=== PATIENT | female | born 1980 | race Caucasian/White ===

== ENCOUNTER 2022-11-26 20:02 | Emergency (ER) | payer OTHER, SELFPAY ==
--- NOTE | 2022-11-26 20:32 | ECG_ITS ---
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 Measurements Intervals [place] Rate: 58 P: 67 CT: 163 QRS: 34 QRSD: 106 T: 66 QT: 448 QTc: 442 Interpretive Statements SINUS BRADYCARDIA INCOMPLETE RIGHT BUNDLE BRANCH BLOCK [90+ ms QRS DURATION, TERMINAL R IN V1/V2, 40+ ms S IN I/aVL/V4/V5/V6] No previous ECG available for comparison Electronically Signed On 11-27-2022 9:27:24 GEAR AND SPLINE GRINDER by Ant Anna M.D. [id number] f
[2022-11-26 20:33] VITALS: BP 168/92; PULSE 68; RESP 18; TEMP 36.4; O2SAT 100; BMI 23.8
--- NOTE | 2022-11-26 20:45 | XRR_ITS ---
PROCEDURE INFORMATION: Exam: XR Chest Exam date and time: 11/26/2022 9:01 PM Age: 41 years old Clinical indication: Shortness of breath; Sternal or substernal pain; Patient HX: C/O substernal cp with SOB. ; Additional info: Cp, SOB TECHNIQUE: Imaging protocol: Radiologic exam of the chest. Views: 1 view. COMPARISON: No relevant prior studies available. FINDINGS: Lungs: Unremarkable. No consolidation. Pleural spaces: Unremarkable. No pleural effusion. No pneumothorax. Heart/Mediastinum: Unremarkable. No cardiomegaly. Bones/joints: Unremarkable. XR/XR chest 1V portable [id number] IMPRESSION: No acute findings.
[2022-11-26 21:01] VITALS: BP 127/67; PULSE 64; RESP 18; O2SAT 100
--- NOTE | 2022-11-26 21:03 | ED_ITS ---
Documented by User: Ward Xavier DO 11/26/22 23:11 HPI - General Adult General: Chief complaint: General Medical Stated complaint: Problems Breath\Chest Pain\Vomiting Time Seen by Provider: 11/26/22 20:59 History of Present Illness: 41-year-old female presents with substernal chest pain that worsens with breathing. Some mild shortness of breath. Nausea, vomiting. Patient was seen 4 days ago with similar symptoms in [facility] and told she had a viral syndrome. She presents today because she continues to feel bad. She reports a history of pneumonia with a collapsed lung and says it felt similar to that at this time. Associated symptoms: Reports chest pain, dyspnea, malaise, nausea and vomiting; Deny headache(s), rash or palpitations Review of Systems Const: Reports: chills, body aches and malaise; Denies: fever(s) Card: Reports: chest pain; Denies: palpitations or lightheadedness Resp: Reports: dyspnea and pain on inspiration; Denies: wheezing GI: Reports: nausea and vomiting; Denies: abdominal pain : Denies: difficulty voiding Musc: Denies: neck pain, back pain or extremity pain Skin/Breast: Denies: rash Neuro: Denies: headache(s) or numbness in extremities Physical Exam Const: COMMON NORMALS: patient oriented x3 and well nourished GENERAL APPEARANCE: not comfortable Resp: COMMON NORMALS: normal respiratory effort, No retractions, No use of accessory muscles and clear to auscultation bilaterally AUSCULTATION: clear to auscultation bilaterally Cardio: COMMON NORMALS: regular rate and regular rhythm RATE: regular rate RHYTHM: regular rhythm GI: COMMON NORMALS: Soft to palpation and non-tender PALPATION: Yes Soft to palpation Extremity: COMMON NORMALS: full ROM and capillary refill normal Neuro: COMMON NORMALS: patient oriented x3, moves all extremities and no focal motor deficits Psych: COMMON NORMALS: mental status grossly normal and cooperative Skin: COMMON NORMALS: no rashes or lesions noted and no wounds GENERAL SKIN EXAM: no rashes or lesions noted Course Vital Signs: Vital signs: Vital Signs Temperature 97.5 F L 11/26/22 20:33 Pulse Rate 62 11/26/22 23:01 Respiratory Rate 14 11/26/22 23:01 Blood Pressure 146/50 11/26/22 23:01 Pulse Oximetry 100 11/26/22 23:01 Oxygen Delivery Me thod 11/26/22 20:33 MDM - General Adult Medical Decision Making Patient with negative x-ray, CBC, D-dimer. She does have slightly low potassium likely due to vomiting. Patient's complaint is significant pain however when walked by the room she is in her sleeping following her treatment with her medications. She is continually asking for something more to knock her out I declined to provide any further medication since she is sleeping comfortably at this time with no significant acute findings on EKG troponins or any other labs. She likely has a pleuritic chest pain versus pain seeking activity. Patient will be discharged charged on Mobic and potassium. Due to her Mobic time she will be turned over to Dr. Bailey will monitor while her is potassium running. Lab Data 11/26/22 21:11 11/26/22 21:11 Radiology Impressions Chest X-Ray 11/26/22 20:45 IMPRESSION: No acute findings. Laboratory Results WBC 10.1 10^3/uL (4.0-10.0) H 11/26/22 21:11 RBC 3.87 10^6/uL (4.1-5.3) L 11/26/22 21:11 Hgb 11.0 g/dL (11.5-15.3) L 11/26/22 21:11 Hct 32.7 % (37.0-47.0) L 11/26/22 21:11 MCV 84.5 fl (81-99) 11/26/22 21:11 MCH 28.4 pg (28.0-34.0) 11/26/22 21:11 MCHC 33.6 g/dL (30.0-36.0) 11/26/22 21:11 RDW 13.3 % (12.1-15.1) 11/26/22 21:11 Plt Count 300 10^3/cmm (130-400) 11/26/22 21:11 MPV 10.2 fL (7.4-10.4) 11/26/22 21:11 Neut % (Auto) 82.3 % 11/26/22 21:11 Lymph % (Auto) 12.8 % 11/26/22 21:11 [place] % (Auto) 4.3 % 11/26/22 21:11 Eos % (Auto) 0.1 % 11/26/22 21:11 Baso % (Auto) 0.2 % 11/26/22 21:11 Neut # (Auto) 8.29 10^3/uL (1.8-7.7) H 11/26/22 21:11 Lymph # (Auto) 1.3 10^3/uL (0.8-4.8) 11/26/22 21:11 [place] # (Auto) 0.4 10^3/uL (0.2-0.9) 11/26/22 21:11 Eos # (Auto) 0.0 10^3/uL (0.0-0.8) 11/26/22 21:11 Baso # (Auto) 0.0 10^3/uL (0.0-0.1) 11/26/22 21:11 Nucleated RBC % (auto) 0 % 11/26/22 21:11 Nucleated RBCs # 0.0 /100WBC 11/26/22 21:11 D-Dimer 0.50 ug/mIFEU (0-0.59) 11/26/22 21:11 Sodium 135 mmol/L (136-145) L 11/26/22 21:11 Potassium 2.8 mmol/L (3.5-5.1) L* 11/26/22 21:11 Chloride 94 mmol/L (98-107) L 11/26/22 21:11 Carbon Dioxide 27 mmol/L (22-29) 11/26/22 21:11 Anion Gap 16.8 (5-19) 11/26/22 21:11 BUN 14 mg/dL (6-20) 11/26/22 21:11 Creatinine 0.5 mg/dL (0.5-0.9) 11/26/22 21:11 GFR Calculation 135.3 mL/min (90-130) H 11/26/22 21:11 Glucose 131 mg/dL (65-115) H 11/26/22 21:11 Calculated Osmolality 282 mOsm/kg (285-295) L 11/26/22 21:11 Calcium 8.7 mg/dL (8.5-10.5) 11/26/22 21:11 Total Bilirubin 0.3 mg/dL (0.15-1.2) 11/26/22 21:11 AST 16 U/L (0-32) 11/26/22 21:11 ALT 21 U/L (0-33) 11/26/22 21:11 Alkaline Phosphatase 70 U/L (35-105) 11/26/22 21:11 Troponin T Baseline 6 ng/L (0-10) 11/26/22 21:11 Troponin T 120 Minute 6.00 ng/L (0-10) 11/26/22 23:04 Total Protein 7.3 g/dL (6.6-8.7) 11/26/22 21:11 Albumin 4.6 g/dL (3.5-5.2) 11/26/22 21:11 Globulin 2.7 g/dL (1.3-4.6) 11/26/22 21:11 Procalcitonin 0.02 ng/mL (0-0.5) 11/26/22 21:11 Discharge Plan Discharge Patient Disposition: Home Clinical Impression: Pleuritic chest pain, Acute hypokalemia Condition: Stable Prescriptions: New potassium chloride 20 mEq tablet,ER particles/crystals 20 meq PO BID Qty: 10 0RF meloxicam 15 mg tablet 15 mg PO DAILY Qty: 10 0RF Discharge Orders: Discharge ED (Routine); Ordered 11/26/22 Ordered By: Juli Bailey Discharge Diet: Usual diet Discharge Activity: Resume usual activity Patient Instructions: Hypokalemia, Pleurisy Coding Level of Care Code ED Router Machine Operator for Chg Fwd Exam Comprehensive Documented by User: Juli Bailey MD 11/26/22 23:38 HPI - General Adult General: Chief complaint: General Medical Stated complaint: Problems Breath\Chest Pain\Vomiting Time Seen by Provider: 11/26/22 20:59 Course Vital Signs: Vital signs: Vital Signs Temperature 97.5 F L 11/26/22 20:33 Pulse Rate 62 11/26/22 23:01 Respiratory Rate 14 11/26/22 23:01 Blood Pressure 146/50 11/26/22 23:01 Pulse Oximetry 100 11/26/22 23:01 Oxygen Delivery Me thod 11/26/22 20:33 MDM - General Adult Medical Decision Making Patient with negative x-ray, CBC, D-dimer. She does have slightly low potassium likely due to vomiting. Patient's complaint is significant pain however when walked by the room she is in her sleeping following her treatment with her medications. She is continually asking for something more to knock her out I declined to provide any further medication since she is sleeping comfortably at this time with no significant acute findings on EKG troponins or any other labs. She likely has a pleuritic chest pain versus pain seeking activity. Patient will be discharged charged on Mobic and potassium. Due to her Mobic time she will be turned over to Dr. Bailey will monitor while her is potassium running. Patient's 2-hour troponin is normal she is stable for discharge we will prescribe her potassium replacement for home she is to follow-up with PCP and return if worsening. Lab Data 11/26/22 21:11 11/26/22 21:11 Radiology Impressions Chest X-Ray 11/26/22 20:45 IMPRESSION: No acute findings. Laboratory Results WBC 10.1 10^3/uL (4.0-10.0) H 11/26/22 21:11 RBC 3.87 10^6/uL (4.1-5.3) L 11/26/22 21:11 Hgb 11.0 g/dL (11.5-15.3) L 11/26/22 21:11 Hct 32.7 % (37.0-47.0) L 11/26/22 21:11 MCV 84.5 fl (81-99) 11/26/22 21:11 MCH 28.4 pg (28.0-34.0) 11/26/22 21:11 MCHC 33.6 g/dL (30.0-36.0) 11/26/22 21:11 RDW 13.3 % (12.1-15.1) 11/26/22 21:11 Plt Count 300 10^3/cmm (130-400) 11/26/22 21:11 MPV 10.2 fL (7.4-10.4) 11/26/22 21:11 Neut % (Auto) 82.3 % 11/26/22 21:11 Lymph % (Auto) 12.8 % 11/26/22 21:11 [place] % (Auto) 4.3 % 11/26/22 21:11 Eos % (Auto) 0.1 % 11/26/22 21:11 Baso % (Auto) 0.2 % 11/26/22 21:11 Neut # (Auto) 8.29 10^3/uL (1.8-7.7) H 11/26/22 21:11 Lymph # (Auto) 1.3 10^3/uL (0.8-4.8) 11/26/22 21:11 [place] # (Auto) 0.4 10^3/uL (0.2-0.9) 11/26/22 21:11 Eos # (Auto) 0.0 10^3/uL (0.0-0.8) 11/26/22 21:11 Baso # (Auto) 0.0 10^3/uL (0.0-0.1) 11/26/22 21:11 Nucleated RBC % (auto) 0 % 11/26/22 21:11 Nucleated RBCs # 0.0 /100WBC 11/26/22 21:11 D-Dimer 0.50 ug/mIFEU (0-0.59) 11/26/22 21:11 Sodium 135 mmol/L (136-145) L 11/26/22 21:11 Potassium 2.8 mmol/L (3.5-5.1) L* 11/26/22 21:11 Chloride 94 mmol/L (98-107) L 11/26/22 21:11 Carbon Dioxide 27 mmol/L (22-29) 11/26/22 21:11 Anion Gap 16.8 (5-19) 11/26/22 21:11 BUN 14 mg/dL (6-20) 11/26/22 21:11 Creatinine 0.5 mg/dL (0.5-0.9) 11/26/22 21:11 GFR Calculation 135.3 mL/min (90-130) H 11/26/22 21:11 Glucose 131 mg/dL (65-115) H 11/26/22 21:11 Calculated Osmolality 282 mOsm/kg (285-295) L 11/26/22 21:11 Calcium 8.7 mg/dL (8.5-10.5) 11/26/22 21:11 Total Bilirubin 0.3 mg/dL (0.15-1.2) 11/26/22 21:11 AST 16 U/L (0-32) 11/26/22 21:11 ALT 21 U/L (0-33) 11/26/22 21:11 Alkaline Phosphatase 70 U/L (35-105) 11/26/22 21:11 Troponin T Baseline 6 ng/L (0-10) 11/26/22 21:11 Troponin T 120 Minute 6.00 ng/L (0-10) 11/26/22 23:04 Total Protein 7.3 g/dL (6.6-8.7) 11/26/22 21:11 Albumin 4.6 g/dL (3.5-5.2) 11/26/22 21:11 Globulin 2.7 g/dL (1.3-4.6) 11/26/22 21:11 Procalcitonin 0.02 ng/mL (0-0.5) 11/26/22 21:11 Discharge Plan Discharge Patient Disposition: Home Clinical Impression: Pleuritic chest pain, Acute hypokalemia Condition: Stable Prescriptions: New potassium chloride 20 mEq tablet,ER particles/crystals 20 meq PO BID Qty: 10 0RF meloxicam 15 mg tablet 15 mg PO DAILY Qty: 10 0RF Discharge Orders: Discharge ED (Routine); Ordered 11/26/22 Ordered By: Juli Bailey Discharge Diet: Usual diet Discharge Activity: Resume usual activity Patient Instructions: Hypokalemia, Pleurisy Coding Level of Care Code ED Router Machine Operator for Arabella Fwd Exam Comprehensive
[2022-11-26 21:17] LABS: Basophils % 0.2 %; Eosinophils % 0.1 %; Hematocrit 32.7 % (37.0-47.0); Lymphocytes # 1.3 10^3/uL (0.8-4.8); Lymphocytes % 12.8 %; Mean Corpuscular HGB Conc 33.6 g/dL (30.0-36.0); Mean Corpuscular Hemoglobin 28.4 pg (28.0-34.0); Mean Corpuscular Volume 84.5 fl (81-99); Mean Platelet Volume 10.2 fL (7.4-10.4); Monocytes # 0.4 10^3/uL (0.2-0.9); Monocytes % 4.3 %; Neutrophils # 8.29 10^3/uL (1.8-7.7); Neutrophils % 82.3 %; Nucleated Red Blood Cells % 0 %; Platelet Count 300 10^3/cmm (130-400); Red Blood Count 3.87 10^6/uL (4.1-5.3); Red Cell Distribution Width 13.3 % (12.1-15.1); White Blood Count 10.1 10^3/uL (4.0-10.0)
[2022-11-26] MEDS: sodium chloride 0.9% 1,000 ML 999 ML IV (21:17)
[2022-11-26] MEDS: ketorolac 30 mg/mL INJ 15 MG IVP (21:17)
[2022-11-26] MEDS: ondansetron 2 mg/ML SDV 2 mL 4 MG IVP (21:17)
[2022-11-26] MEDS: famotidine 20 mg/2 mL INJ 40 MG IVP (21:22)
[2022-11-26 21:30] VITALS: BP 150/62; PULSE 66; RESP 16; O2SAT 100
[2022-11-26 21:39] LABS: Alanine Aminotransferase 21 U/L (0-33); Albumin Level 4.6 g/dL (3.5-5.2); Alkaline Phosphatase 70 U/L (35-105); Anion Gap 16.8 (5-19); Aspartate Amino Transferase 16 U/L (0-32); Blood Urea Nitrogen 14 mg/dL (6-20); Calcium 8.7 mg/dL (8.5-10.5); Carbon Dioxide 27 mmol/L (22-29); Chloride 94 mmol/L (98-107); Globulin 2.7 g/dL (1.3-4.6); Glomerular Filtration Rate 135.3 mL/min (90-130); Glucose 131 mg/dL (65-115); Osmolality Calculated 282 mOsm/kg (285-295); Sodium 135 mmol/L (136-145); Total Bilirubin 0.3 mg/dL (0.15-1.2); Total Protein 7.3 g/dL (6.6-8.7)
[2022-11-26 21:40] LABS: Troponin(5th) Baseline 6 ng/L (0-10)
[2022-11-26 21:45] LABS: Procalcitonin 0.02 ng/mL (0-0.5)
[2022-11-26 21:48] LABS: Potassium 2.8 mmol/L (3.5-5.1)
[2022-11-26 22:00] VITALS: BP 137/55; PULSE 60; RESP 14; O2SAT 100
[2022-11-26] MEDS: potassium chloride premix 100 ML 50 MEQ IV (22:18)
[2022-11-26 22:30] VITALS: BP 119/61; PULSE 65; RESP 14; O2SAT 97
--- NOTE | 2022-11-26 22:45 | ECG_ITS ---
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 Measurements Intervals [place] Rate: 61 P: 72 [place]: 180 QRS: 52 QRSD: 102 T: 73 QT: 441 QTc: 448 Interpretive Statements SINUS RHYTHM INDETERMINATE AXIS INCOMPLETE RIGHT BUNDLE BRANCH BLOCK [90+ ms QRS DURATION, TERMINAL R IN V1/V2, 40+ ms S IN I/aVL/V4/V5/V6] No previous ECG available for comparison Electronically Signed On 11-27-2022 20:43:43 LOBSTER MAN by Ant Anna M.D. [id number]
[2022-11-26 23:01] VITALS: BP 146/50; PULSE 62; RESP 14; O2SAT 100
[2022-11-26] MEDS: diphenhydrAMINE 50 mg/mL SDV 1mL IVP (23:16)
[2022-11-26] MEDS: metoclopramide 5 mg/mL SDV 2 mL 10 MG IVP (23:17)
[2022-11-26 23:58] LABS: Troponin 5 2HR Delta 0 ABS# (0-10)
== END 2022-11-27 00:28 | disposition home or self-care (01) ==
PROVIDERS: Student in an Organized Health Care Education/Training Program; Emergency Provider Emergency Medicine
DX: R09.1 Pleurisy (principal); E87.6 Hypokalemia
CPT/HCPCS: 71045; 80053; 84145; 84484; 85025; 85378; 93005; 96365; 96366; 96375; 99285; J1200; J1885; J2405; J2765; J3480; J3490; J7030